=== PATIENT | female | born 1975 | race Caucasian/White ===

== ENCOUNTER 2017-04-08 11:18 | Emergency (ER) | payer OTHER, SELFPAY ==
--- NOTE | 2017-04-08 11:28 | XR_ITS ---
XR chest 2V Ordering Physician: Jenniffer Montero Patient Age: 42 years: Female HISTORY: ITS.REASON: CONGESTION Short of breath. Cough congestion TECHNIQUE: PA and lateral chest COMPARISON :No previous relevant studies FINDINGS . The lungs are well expanded and clear with nothing definitely acute no focal pneumonia. Markings upper normal at the medial right base within normal limits and reflects less than optimal expansion. The heart is normal size. Heart, supriya and mediastinal structures satisfactory. Chest wall and T-spine unremarkable. IMPRESSION: No pneumonia evident. Lungs clear with nothing definitely acute. .
[2017-04-08 11:38] LABS: UTC Influenza A Antigen Negative (Negative); UTC Influenza B Antigen Positive (Negative)
[2017-04-08 11:38] LABS: UTC Pregnancy Test, Urine Negative (Negative)
[2017-04-08 11:40] VITALS: BP 120/59; PULSE 75; RESP 19; TEMP 37.3; O2SAT 98; BMI 30.1
--- NOTE | 2017-04-08 12:08 | HMH.EDUTC ---
[facility] [place] Disposition Clinical Impression: Flu Disposition: Home, Self-Care Condition on Discharge: Good Instructions: Influenza Additional Instructions: Increase fluids, rest, Tylenol or ibuprofen as needed for pain or fever If symptoms worsen or do not improve return or be seen in the ER Follow-up with primary care this week Referrals: Georgie Costello APRN [Primary Care Provider] - Time of Disposition: 12:42 Medical Decision Making Vital Signs: 04/08/17 11:40 Temperature 99.1 F Temperature Source Oral Pulse Rate [Left Brachial] 75 Respiratory Rate 19 Blood Pressure [Left Arm] 120/59 Blood Pressure Mean [Left Arm] 79 Blood Pressure Source [Left Arm] Automatic Cuff Blood Pressure Position [Left Arm] Sitting 02 Sat by Pulse Oximetry 98 Oxygen Delivery Method Room Air - Lab Data Lab Results 04/08/17 11:27: Influenza Type A Ag Negative, Influenza Type B Ag Positive A 04/08/17 11:37: [facility] Negative - Rajinder Inquiry Pt receiving controlled substance: No Rajinder was queried for this patient: No [facility] [place] HPI - General Stated complaint: poss flu,congestion Time Seen by Provider: 04/08/17 12:08 Mode of Arrival: Ambulatory Source of Information: Patient Limitations: No Limitations Description of Symptoms (Recalled from Triage Doc. by RN): flu like symptoms HEENT Symptoms (Recalled from RN notes): No Resp Symptoms (Recalled from RN notes): Yes (cough congestion, soa with activity) Skin Symptoms (Recalled from RN notes): No MS Symptoms (Recalled from RN notes): Yes (body aches) Functional Status (Recalled from RN notes): na - History of Present Illness Provider Complaint: 42-year-old female presents for chest congestion, cough, body aches and shortness of breath. Son was diagnosed with flu B - Related Data Home Medications Medication Instructions Recorded Confirmed Aspirin [Aspirin 325mg Tab] 325 mg PO DAILY 04/08/17 04/08/17 Atorvastatin Calcium [Atorvastatin 40 mg PO DAILYP PRN 04/08/17 04/08/17 40mg Tab] Bisoprolol Fumarate [Zebeta 5mg 5 mg PO DAILY 04/08/17 04/08/17 tablet] Cetirizine HCl [Zyrtec] 10 mg PO DAILY 04/08/17 04/08/17 Fluticasone Propionate [Flovent 50 mcg IH DAILY 04/08/17 04/08/17 Diskus] Levothyroxine Sodium 25 mcg PO DAILY 04/08/17 04/08/17 [Levothyroxine 25mcg (0.025mg) Tab] Pantoprazole Sodium [Protonix 40mg 40 mg PO DAILY 04/08/17 04/08/17 tablet] Allergies Allergy/AdvReac Type Severity Reaction Status Date / Time ANTIHISTAMINES Allergy Unknown Uncoded 03/06/17 15:07 ASA (ASPIRIN) Allergy Unknown Uncoded 03/06/17 15:07 decongestants AdvReac Uncoded 04/08/17 11:43 - Worker's Comp Is this a Worker's Comp case?: No Is this an [facility] Worker's Comp?: No Is this a [place] Worker's Comp?: No [facility] History Medical History: Denies:: Cancer, Diabetes Mellitus Type 1, Diabetes Mellitus Type 2, MRSA Amputation: No - *Social History Smoking Status: Former smoker Tobacco Type: cigarettes Alcohol Intake: never - Psychiatric History Expresses thoughts of harming self/others: None Suicide Plan Description: No Plan ROS Obtained: Yes All systems reviewed & no additional complaints - Constitutional Constitutional: Reports system reviewed and no additional complaints, except as docu, Reports fever(s) - Eyes Eyes: Reports system reviewed and no additional complaints, except as docu - ENT Ears, Nose, Mouth, and Throat: Reports system reviewed and no additional complaints, except as docu, Reports as per HPI - Cardiovascular Cardiovascular: Reports system reviewed and no additional complaints, except as docu - Respiratory Respiratory: Yes system reviewed and no additional complaints, except as docu, Yes as per HPI, Yes chest congestion, Yes cough - Gastrointestinal Gastrointestingal: Reports: system reviewed and no additional complaints, except as docu - Integumentary/Breasts Skin/Breast: Reports system reviewed and no ezequiel
--- NOTE | 2017-04-08 12:11 | ED_ITS ---
[facility] [place]ression: Flu Disposition: Home, Self-Care Condition on Discharge: Good Instructions: Influenza Additional Instructions: Increase fluids, rest, Tylenol or ibuprofen as needed for pain or fever If symptoms worsen or do not improve return or be seen in the ER Follow-up with primary care this week Referrals: Georgie Costello APRN [Primary Care Provider] - Time of Disposition: 12:42 Medical Decision Making Vital Signs: 04/08/17 11:40 Temperature 99.1 F Temperature Source Oral Pulse Rate [Left Brachial] 75 Respiratory Rate 19 Blood Pressure [Left Arm] 120/59 Blood Pressure Mean [Left Arm] 79 Blood Pressure Source [Left Arm] Automatic Cuff Blood Pressure Position [Left Arm] Sitting 02 Sat by Pulse Oximetry 98 Oxygen Delivery Method Room Air - Lab Data Lab Results 04/08/17 11:27: Influenza Type A Ag Negative, Influenza Type B Ag Positive A 04/08/17 11:37: [facility] Clinic Negative - Rajinder Inquiry Pt receiving controlled substance: No Rajinder was queried for this patient: No [facility] [place] - General Stated complaint: poss flu,congestion Time Seen by Provider: 04/08/17 12:08 Mode of Arrival: Ambulatory Source of Information: Patient Limitations: No Limitations Description of Symptoms (Recalled from Triage Doc. by RN): flu like symptoms HEENT Symptoms (Recalled from RN notes): No Resp Symptoms (Recalled from RN notes): Yes (cough congestion, soa with activity ) Skin Symptoms (Recalled from RN notes): No MS Symptoms (Recalled from RN notes): Yes (body aches) Functional Status (Recalled from RN notes): na - History of Present Illness Provider Complaint: 42-year-old female presents for chest congestion, cough, body aches and shortness of breath. Son was diagnosed with flu B - Related Data Home Medications Medication Instructions Recorded Confirmed Aspirin [Aspirin 325mg Tab] 325 mg PO DAILY 04/08/17 04/08/17 Atorvastatin Calcium [Atorvastatin 40 mg PO DAILYP PRN 04/08/17 04/08/17 40mg Tab] Bisoprolol Fumarate [Zebeta 5mg 5 mg PO DAILY 04/08/17 04/08/17 tablet] Cetirizine HCl [Zyrtec] 10 mg PO DAILY 04/08/17 04/08/17 Fluticasone Propionate [Flovent 50 mcg IH DAILY 04/08/17 04/08/17 Diskus] Levothyroxine Sodium 25 mcg PO DAILY 04/08/17 04/08/17 [Levothyroxine 25mcg (0.025mg) Tab] Pantoprazole Sodium [Protonix 40mg 40 mg PO DAILY 04/08/17 04/08/17 tablet] Allergies Allergy/AdvReac Type Severity Reaction Status Date / Time ANTIHISTAMINES Allergy Unknown Uncoded 03/06/17 15:07 ASA (ASPIRIN) Allergy Unknown Uncoded 03/06/17 15:07 decongestants AdvReac Uncoded 04/08/17 11:43 - Worker's Comp Is this a Worker's Comp case?: No Is this an [facility] Worker's Comp?: No Is this a [place] Worker's Comp?: No [facility] History Medical History: Denies:: Cancer, Diabetes Mellitus Type 1, Diabetes Mellitus Type 2, MRSA Amputation: No - *Social History Smoking Status: Former smoker Tobacco Type: cigarettes Alcohol Intake: never - Psychiatric History Expresses thoughts of harming self/others: None Suicide Plan Description: No Plan ROS Obtained: Yes All systems reviewed & no additional complaints - Constitutional Constitutional: Reports system reviewed and no additional compla
== END 2017-04-08 12:51 | disposition home or self-care (01) ==
PROVIDERS: Emergency Provider Nurse Practitioner Family; Family Provider Nurse Practitioner Family; PCP Nurse Practitioner Family
DX: J11.1 Influenza due to unidentified influenza virus with other respiratory manifestations (principal); Z79.82 Long term (current) use of aspirin; Z79.51 Long term (current) use of inhaled steroids; Z79.899 Other long term (current) drug therapy; Z87.891 Personal history of nicotine dependence
CPT/HCPCS: 71046; 81025; 87804; 99202

== ENCOUNTER → 2018-12-03 15:38 | Outpatient (CLI) | payer OTHER, SELFPAY ==
--- NOTE | 2018-12-03 15:43 | MM_ITS ---
PROCEDURE: MM DIG SCREENING MAMM BI W/CAD CLINICAL INDICATION: screening There is no personal or family history of breast cancer. COMPARISON: DMSB DIG MAMM-SCREEN TED from 10/30/2014 TECHNIQUE: Standard CC and MLO images were obtained. R2 CAD reviewed. FINDINGS: Prominent diffuse fibroglandular densities are seen in both breasts glandular elements slightly more prominent right breast than left as noted previously. There is a stable tiny benign-appearing nodular density axillary tail left breast probably low-lying node. There is no new or suspicious lesion in either breast and no suspicious microcalcifications. IMPRESSION: Fibrofatty parenchyma with no suspicious lesions seen BI-RAD Category: 2 Benign Finding(s) FOLLOW-UP: 1YR 1 Year Follow-up (A letter has been sent to the patient regarding results of the study.) Dictated by: Dr. David Young MD 12/05/2018 16:[address] David Young MD in [place] 12/05/2018 16:28
== END ==
PROVIDERS: PCP Nurse Practitioner Family; Visit Provider Obstetrics & Gynecology
DX: Z12.31 Encounter for screening mammogram for malignant neoplasm of breast (principal)
CPT/HCPCS: 77067

== ENCOUNTER → 2021-10-21 15:27 | Outpatient (CLI) | payer MEDICAID, SELFPAY ==
--- NOTE | 2021-10-21 15:30 | MM_ITS ---
PROCEDURE INFORMATION: Exam: MG Bilateral Screening 3D Mammography Exam date and time: 10/21/2021 3:31 PM Age: 46 years old Clinical indication: Screening examination TECHNIQUE: Imaging protocol: Bilateral Screening tomosynthesis and 2D mammography including computer-aided detection (CAD) when performed. COMPARISON: 1. MG MM DIG SCREENING MAMM BI W/CAD 12/03/2018 3:57 PM 2. MG DMSB DIG MAMM-SCREEN TED 10/30/2014 4:02 PM FINDINGS: MAMMOGRAPHY: Breast composition: The breast is heterogeneously dense, which may obscure small masses. Mass: None. Architectural distortion: No new or suspicious architectural distortion. Calcifications: No new or suspicious calcifications are present Asymmetric density: No new or suspicious asymmetric density is present Skin thickening: None. Axillary adenopathy: None. IMPRESSION: No mammographic evidence of malignancy. Recommend annual screening mammography unless otherwise clinically indicated. ASSESSMENT: BI-RADS category 1: Negative
== END ==
PROVIDERS: PCP Nurse Practitioner; Visit Provider Nurse Practitioner
DX: Z12.31 Encounter for screening mammogram for malignant neoplasm of breast (principal)
CPT/HCPCS: 77063; 77067

== ENCOUNTER → 2022-11-06 10:29 | Outpatient (CLI) | payer MEDICAID, SELFPAY ==
--- NOTE | 2022-11-06 10:32 | MM_ITS ---
PROCEDURE INFORMATION: Exam: MG Bilateral Screening 3D Mammography Exam date and time: 11/06/2022 10:51 AM Age: 47 years old Clinical indication: Screening. No family history of breast cancer. TECHNIQUE: Imaging protocol: Bilateral Screening tomosynthesis and 2D mammography including computer-aided detection (CAD) when performed. COMPARISON: 1. MG MM DIG SCREENING MAMM BI W/CAD 10/21/2021 3:31 PM 2. MG MM DIG SCREENING MAMM BI W/CAD 12/03/2018 3:57 PM 3. MG DMSB DIG MAMM-SCREEN TED 10/30/2014 4:02 PM FINDINGS: MAMMOGRAPHY: Breast composition: There are scattered areas of fibroglandular density. Mass: Questionable 0.3 cm oval mass/circumscribed asymmetry in the upper right breast, 8-9 cm from the nipple, posterior 1/3, MLO frame 56. Architectural distortion: None. Calcifications: No suspicious calcifications. Asymmetric density: No developing asymmetry. Skin thickening: None. Axillary adenopathy: None. IMPRESSION: Patient will be recalled for right diagnostic mammography with spot compression in MLO and full field lateral and right sonography for further evaluation questionable right breast mass. ASSESSMENT: BI-RADS Category 0: Incomplete- Need Additional Imaging Evaluation and/or Prior Mammograms for Comparison
== END ==
PROVIDERS: PCP Nurse Practitioner; Visit Provider Nurse Practitioner
DX: Z12.31 Encounter for screening mammogram for malignant neoplasm of breast (principal)
CPT/HCPCS: 77063; 77067

== ENCOUNTER → 2022-11-15 12:28 | Outpatient (CLI) | payer MEDICAID, SELFPAY ==
--- NOTE | 2022-11-15 12:36 | MM_ITS ---
PROCEDURE INFORMATION: Exam: US Right Breast, Complete MG Right Diagnostic Breast Tomosynthesis Exam date and time: 11/15/2022 12:57 PM Age: 47 years old Clinical indication: Patient recalled on the basis of a screening mammogram for further evaluation; Right breast; mass TECHNIQUE: Imaging protocol: Complete ultrasound of all four quadrants of the right breast and the retroareolar regions, including ultrasound of the axilla when performed. Right Diagnostic tomosynthesis and 2D mammography including computer-aided detection (CAD) when performed. Unilateral or bilateral exam. COMPARISON: 1. MG MM DIG SCREENING MAMM BI W/CAD 11/06/2022 10:51 AM 2. MG MM DIG SCREENING MAMM BI W/CAD 10/21/2021 3:31 PM FINDINGS: MAMMOGRAPHY: Digital diagnostic spot compression views of the right breast and 90 degree lateral view of the right breast demonstrate normal overlapping fibroglandular structures without persistent mass or asymmetry identified. ULTRASOUND: Sonographic images of the right breast including the retroareolar region, all 4 quadrants and the axilla demonstrates a hypoechoic mass in the 11 o'clock axis 5 cm from the nipple measuring 0.3 x 0.3 x 0.3 cm likely reflecting a debris-filled cyst. Additional probable debris-filled cyst in the right 9 o'clock axis 1 cm from the nipple measuring 0.4 x 0.3 cm. Few additional scattered subcentimeter cysts are noted in the right breast.. No architectural distortion or acoustical shadowing. No skin thickening or axillary adenopathy. IMPRESSION: Probable debris-filled cysts in show the right upper outer quadrant. A six-month follow-up targeted right breast ultrasound is recommended to ensure stability over time ASSESSMENT: BI-RADS Category 3: Probably benign
== END ==
PROVIDERS: PCP Nurse Practitioner; Visit Provider Nurse Practitioner
DX: N63.10 Unspecified lump in the right breast, unspecified quadrant (principal)
CPT/HCPCS: 76641; 77061; 77065; G0279

== ENCOUNTER 2024-11-07 10:16 | Outpatient (CLI) | payer OTHER, SELFPAY ==
--- OUTSIDE RECORDS SUMMARY | 2024-11-07 10:20 | XMS_ITS | Clinical Summary ---
Author Organization [facility] Address [address] [place] [id number] Phone Care Team Providers Care Molder Machine Tender Name Role Phone Unavailable Primary Care Provider Unavailabl e Social History Tobacco Use Types Packs/Day Years Used Date Smoking Tobacco: Never Assessed Comments Unknown Sex and Gender Information Value Date Recorded Sex Assigned at Not on file Legal Sex Female 11:38 AM EST Gender Identity Not on file Sexual Orientation Not on file Obstetrics History Plan of Treatment Health Maintenance Due Date Last Done Comments Annual Wellness Exam 02/14/1980 DTaP/TDaP/Td (1 - Tdap) 02/14/1996 Hepatitis B Vaccine (1 of 3 - 19+ 3-dose series) 02/14/1996 Cervical Cancer Screening 1998 Pap Smear 1998 HPV/Pap Cotest 2007 Cologuard 2022 Colon Cancer Screening 2022 Colonoscopy 2022 FIT 2022 Sigmoidoscopy 2022 Virtual Colonography 2022 Breast Cancer Screening 02/27/2022 02/28/2020 COVID-19 Vaccine (1 - 2023-2 5 season) 2023 Influenza Vaccine (#1) 2024 Meningococcal B Vaccine Aged Out No l onger eligible based on patient's age to complete this topic Pneumococcal Vaccine 0-49 Aged Out No longer eligible based on patient's age to complete this topic Procedures Procedure Name Priority Date/Time Associated Diagnosis Comments MM MAMMO DIGITAL LACIE SCREEN BILAT Routine 02/28/2020 12:22 PM EST Encounter for screening mammogram for malignant neoplasm of breast from Last 3 Months or Most Recently Relevant to Health Maintenance Results * MM MAMMO DIGITAL LACIE SCREEN BILAT (02/28/2020 12:22 PM EST) Anatomical Region Laterality Modality Breast Bilateral Mammography 03/03/2020 3:47 PM EST Impressions 03/03/2020 3:47 PM EST Negative ([id number]) ~ RECOMMENDATION: Routine screening mammogram in 1 year. ~ DISCLAIMER * Any patient with a palpable abnormality, unexplained by breast imaging, should be managed on clinical basis by the attending physician. * Breast imaging has a false negative rate of 15%. * The patient was notified by mail of the results of this examination. *The patient's information was entered into a reminder system with a target due date for the next mammogram, in accordance with the [employer] and the Society of Breast Imaging recommendations. Narrative 03/03/2020 3:47 PM EST Procedure:MM MAMMO DIGITAL LACIE SCREEN BILAT ~ Reason for exam: screening, asymptomatic. Z12.31-Encounter for screening mammogram for malignant neoplasm of [id number] ~ MM MAMMO DIGITAL LACIE SCREEN BILAT Bilateral CC and MLO view(s) were taken. There are scattered fibroglandular densities. Prior study comparison: No priors are available. No mammographic evidence of malignancy. ~ Procedure Note Patricia Martinez MD - 03/03/2020 Procedure:MM MAMMO DIGITAL LACIE SCREEN BILAT ~ Reason for exam: screening, asymptomatic. Z12.31-Encounter for screening mammogram for malignant neoplasm of [id number] ~ MM MAMMO DIGITAL LACIE SCREEN BILAT Bilateral CC and MLO view(s) were taken. There are scattered fibroglandular densities. Prior study comparison: No priors are available. No mammographic evidence of malignancy. ~ IMPRESSION: Negative ([id number]) ~ RECOMMENDATION: Routine screening mammogram in 1 year. ~ DISCLAIMER * Any patient with a palpable abnormality, unexplained by breast imaging, should be managed on clinical basis by the attending physician. * Breast imaging has a false negative rate of 15%. * The patient was notified by mail of the results of this examination. *The patient's information was entered into a reminder system with atarget due date for the next mammogram, in accordance with the [employer] and the Society of Breast Imaging recommendations. us Not In Epic Provider IMG MAMMOGRAPHY ORDERABLES Final Result from Last 3 Months or Most Recently Relevant to Health Maintenance Insurance [address] [place] [address]
--- OUTSIDE RECORDS SUMMARY | 2024-11-07 10:20 | XMS_ITS | Clinical Summary ---
Author Organization Healthcare Address [address] [place] [address] Care Team Providers Care Staffing Executive Name Role Phone Georgie Costello APRN Primary Care Provider [phone] Family History Medical History Relation Name Comments Cardiac disorder Other 1 Hypertension Other 2 Thyroid disease Other 3 Hyperlipidemia Other 4 Relation Name Status Comments Other 1 Other 2 Other 3 Other 4 Social History Tobacco Use Types Packs/Day Years Used Date Smoking Tobacco: Former Alcohol Use Standard Drinks/Week Comments No 0 (1 standard drink = 0.6 oz pur e alcohol) Comments Unknown Sex and Gender Information Value Date Recorded Sex Assigned at Not on file Legal Sex Female 6:33 PM EDT Gender Identity Not on file Sexual Orientation Not on file Last Filed Vital Signs Vital Sign Reading Time Taken Comments Blood Pressure - - Pulse - - Temperature - - Respiratory Rate - - Oxygen Saturation - - Inhaled Oxygen Concentration - - Weight 73.9 kg (162 lb 14.7 oz) 017 10:54 AM EDT Height 160 cm (5' 3 ) 12/21/2016 10:54 AM EDT Body Mass Index 28.86 12/21/2016 10:54 AM EDT Plan of Treatment Not on file Care Teams Staffing Executive Relationship Specialty Start Date End Date Georgie Costello APRN [address] [place] [address] PCP - General 07/30/20
== END 2024-11-07 23:59 | disposition home or self-care (01) ==
LOC: RAD 10:16
PROVIDERS: PCP Nurse Practitioner; Visit Provider Nurse Practitioner
DX: Z12.39 Encounter for other screening for malignant neoplasm of breast (principal)
CPT/HCPCS: 77063; 77067